=== PATIENT | female | born 1945 | race Caucasian/White ===

== ENCOUNTER 2017-06-07 19:11 | Observation (INO) | payer MEDICARE, MEDICAID ==
[~2017-06-07 19:11] MED LIST: Iopamidol 370 76% 50 ML VIAL FS ONE
[2017-06-07 21:27] LABS: PTT 29.1 SEC (22.9-36.1); Prothrombin Time 13.6 SEC (12.0-14.7)
[2017-06-07 21:28] LABS: #Eosinphils 0.3 thou/uL (0.0-0.7); #Lymphocytes 0.7 thou/uL (1.20-3.40); #Monocytes 0.8 thou/uL (0.11-0.59); #Neutrophils 4.1 thou/uL (1.40-6.50); %Basophils 0.7 % (0.0-1.0); %Eosinophils 5.4 % (0.0-10.0); %Lymphocytes 12.2 % (21.0-51.0); %Neutrophils 68.7 % (42.0-75.0); Hemoglobin 5.7 g/dL (12.0-16.0); Mean Corpuscular Hemoglobin 20.9 pg (27.0-31.0); Mean Corpuscular Volume 71.9 fl (81.0-99.0); Mean Platelet Volume 7.8 fL (7.4-10.4); Platelet Count 455 thou/uL (130-400); RBC Distribution Width 14.3 % (11.5-14.5); Red Blood Cell (RBC) Count 2.74 mill/uL (4.20-5.40); White Blood Cell (WBC) Count 5.9 thou/uL (4.8-10.8)
[2017-06-07 21:30] LABS: ALT (SGPT) 11 U/L (8-55); AST (SGOT) 15 U/L (5-34); Albumin 3.7 g/dL (3.4-4.8); Alkaline Phosphatase 243 U/L (40-150); Anion Gap 15 mmol/L (10-20); BUN (Urea Nitrogen) 20 mg/dL (9.8-20.1); Bilirubin, Total 0.3 mg/dL (0.2-1.2); Calc. Creatinine Clearance 0 mL/min (70-130); Carbon Dioxide 23 mmol/L (23-31); Chloride 105 mmol/L (98-107); Estimated GFR-MDRD 70; Globulin 3.3 g/dL (2.4-3.5); Glucose 97 mg/dL (83-110); Sodium 139 mmol/L (136-145)
[2017-06-07 21:35] LABS: CKMB 1.3 ng/mL (0-6.6); Troponin I 0.016 ng/mL (< 0.028)
[2017-06-07] MEDS ORDERED: Lorazepam 2 MG/ML VIAL ONE (22:09)
--- NOTE | 2017-06-07 23:05 | CT ---
CT OF THE ABDOMEN AND PELVIS WITHOUT CONTRAST 06/07/17 PROVIDED CLINICAL HISTORY: Abdominal pain, history of recent ERCP. FINDINGS: Comparison is made with prior examination dated 03/30/15. The visualized lung bases appear clear. There is a large hiatal hernia redemonstrated. Pneumobilia is noted, presumably on the basis of prior sphincterotomy. There is high density fluid wi th several foci of air noted at the posterior and right lateral margin of the liver, extending along the right lateral aspect of the abdomen adjacent to the ascending colon laterally. This is in a simil ar location to a fluid collection that was present on the 2014 CT examination which had a drain place d in this region at that time. The etiology of this fluid and gas is uncertain. A bile leak cannot be excluded. Blood products are also possible. The solid abdominal organs are suboptimally evaluated without IV contrast but demonstrate and otherwi se unremarkable unenhanced CT appearance. There is no bowel dilatation, inflammatory fat stranding or free intraperitoneal air apparent. Sigmoi d colonic diverticulosis is noted. Vascular calcifications are seen. The osseous structures demonstra te no concerning osteoblastic or osteolytic lesions. Remote appearing compression deformities are not ed involving the lower thoracic spine. IMPRESSION: High density fluid with admixed foci of air are noted about the right liver margin and extending roney g the right pericolic gutter. The etiology and significance of these findings is not completely certa in though one explanation would be on the basis of a bile leak. This is in a similar location to a fl uid collection which previously was drained by a drainage catheter on the 2015 study. POS: JOHN
[2017-06-07 23:53] LABS: Band 2 % (5-11); Eosinophils 3 % (0-10); Lymphocytes 12 % (21-51); Monocytes 12 % (0-10)
[2017-06-07 23:54] LABS: Anisocytosis SLIGHT = 6-15 cells (100X) (0-5/hpf); Hypochromia SLIGHT = 6-15 cells (100X) (0-5/hpf); Microcytosis MODERATE=15-30 cells (100X) (0-5/hpf); Polychromasia SLIGHT = 2-3 cells (100X) (0-2/hpf)
[2017-06-07 23:55] LABS: PLT Morphology Comment Appears Increased
[2017-06-08 00:38] VITALS: BMI 21.4
[2017-06-08 00:56] LABS: Neutrophil 70 % (42-75)
[2017-06-08] MEDS ORDERED: Donepezil HCl 10 MG TAB PO SCH ×2 (01:45→21:00)
[2017-06-08] MEDS ORDERED: Mirtazapine 15 MG TAB PO SCH ×2 (01:45→21:00)
[2017-06-08] MEDS ORDERED: HYDROcodone/Acetaminophen 10/325 mg Tablet PO PRN (02:42)
[2017-06-08] MEDS ORDERED: Acetaminophen 325 MG TAB PO PRN (02:42)
[2017-06-08] MEDS ORDERED: Ondansetron HCl/PF 4 MG/2 ML Vial IVP PRN (02:42)
[2017-06-08] MEDS ORDERED: Ondansetron ODT 4 MG TAB PO PRN (02:42)
[2017-06-08] MEDS ORDERED: HYDROcodone/Acetaminophen 5/325 mg Tablet PO PRN (02:42)
--- NOTE | 2017-06-08 03:14 | HP ---
DATE OF ADMISSION: 06/08/2017 TIME OF SERVICE: 0130 hours. PRIMARY CARE PHYSICIAN: Dr. Gi Vaz. CHIEF COMPLAINT: Dyspnea on exertion and symptomatic anemia. HISTORY OF PRESENT ILLNESS: Ms. Nicholson is a 71-year-old female with history of dementia, migraine hea daches, remotely, recent choledocholithiasis, depression, and GERD. The patient was in normal state of health and having increased shortness of breath that she was getting moving around. She was seen by her primary care physician on 06/06/2017. Labs were ordered that day. The patient was sent home. On 06/07/2017, lab returned with a hemoglobin of 6.0 and she was told to go straight to the ER for ev aluation and possible admission for transfusion. On arrival to our ER, repeat blood counts were obta ined that showed hemoglobins the same at 5.7 and we were subsequently called for admission. She was typed and crossed for 2 units. The patient denies any chest pain, short of breath. No nausea, vomiting, no diarrhea, constipation, no fevers, or chills. She has had no GI bleeding from above or below. No hematuria or dysuria and n o abdominal trauma. Patient was admitted at [facility] about a month ago for abdominal pain, which she was found to have choledocholithiasis. She underwent ERCP. I was told by the ER, they were unable to get the st one; however, the patient said they did to retrieve stone. She has no gallbladder; it is already willie gically absent. On review the patient has a hemoglobin of 8.9 back in 07/2016, by 01/2017 is up to 10.7 and then 05/16 down to 6.0. No other current complaints. PAST MEDICAL HISTORY: 1. Dementia. 2. Migraine headaches remotely. 3. Choledocholithiasis status post ERCP. 4. Depression. 5. GERD. PAST SURGICAL HISTORY: 1. Include laparoscopic cholecystectomy in 2014. 2. Appendectomy in early . 3. ERCP and stone removal 04/2017. HOME MEDICATIONS: 1. Protonix 40 mg p.o. daily. 2. Aricept 10 mg p.o. at bedtime. 3. Mirtazapine 30 mg p.o. at bedtime. 4. Duloxetine 30 mg p.o. daily. ALLERGIES: NKDA. FAMILY HISTORY: Denied. There is no history of clotting disorders. No free of liters or blood clot s. No history of immune dysfunction. SOCIAL HISTORY: Past tobacco use, but quit less than 10 years ago. She smoked for about 50 years. Currently uses negative habits x3. REVIEW OF SYSTEMS: Ten point review of systems was performed, negative for all other systems except stated as per HPI. PHYSICAL EXAMINATION: VITAL SIGNS: Temperature 98.2, pulse 84, blood pressure 108/74, respiratory 23, 99% on room air. GENERAL: She is awake. She is alert. She is oriented to x3. She is a pleasant, elderly white fema le. She seems a little confused at times, but is pleasantly conversant. HEENT: Normocephalic, atraumatic. Pupils are equal, round, and reactive to light bilaterally, mucou s membranes are moist. She has no visible lesion or no thrush. No facial asymmetry. NECK: Supple, no lymphadenopathy, JVD, thyromegaly. She has normal carotid upstroke without bruits. LUNGS: Clear. No wheezes, no rales, no rhonchi. She has good air movement. Symmetrical chest excu rsion. No prolonged expiratory phase. CARDIOVASCULAR: She has normal S1 and S2. There is no S3, S4. There is a faint, 2/6 systolic eject ion murmur, best over the right upper sternal border. ABDOMEN: Soft, nontender, nondistended, no masses, no organomegaly. EXTREMITIES: No cyanosis, no clubbing. She has got trace pedal edema, 1+ dorsalis pedis pulses bila terally, 2+ posterior tibial pulses. SKIN: Warm, moist and well perfused. She has no rashes or lesions. She does look a little pale, bu t no scleral icterus. MUSCULOSKELETAL: Normal to inspection. She has no inflamed joints and no palpable joint effusions. NEUROLOGIC: Cranial nerves II-XII are grossly intact. She has 5/5 strength in all four extremities. She has no focal deficits and normal speech. LABORATORY DATA: Sodium of 139, potassium 4.0, chloride 105, bicarb 23, BUN 20, creatinine 0.51, and glucose of 97. Liver function completely within normal limits. Alkaline phosphatase little elevate d at 243 with bilirubin normal. CBC showed a white count of 5.9, hemoglobin 5.7, hematocrit of 19.7, platelet count of 455,000. Hepatitis C antibody total negative. CK-MB normal at 1.3. Troponin I 0.016. Lactic acid 1.0. INR 1.0. RADIOGRAPHIC STUDIES: A CT of the abdomen and pelvis showed high density fluid in mixed foci of air in the right liver margin along the right paracolic gutter, but could be a bile leak. It is in the s imilar location of a fluid collection, which was previously drained by drainage catheter in 2015 stud y. ASSESSMENT AND PLAN: 1. Symptomatic anemia. Patient was given 2 units of blood. She has been started a second unit now. We will continue to monitor. 2. Hypochromic microcytic anemia. Etiology not clear. She had fairly normal hemoglobin back in [facility]. We will check an LDH and haptoglobin. We will get a peripheral pathologic review of periphe ral smear. A CT scan did show fluid along the right paracolic gutter, but certainly the fluid collec tion would not explain a 4 gram drop in hemoglobin. We will check a blood count in the morning after transfusion and see. Patient has not had any history of melena, hematochezia, or hematemesis. I wi ll continue to watch. 3. Recent choledocholithiasis, status post endoscopic retrograde cholangiopancreatography and stone removal at [place]. Nothing on CAT scan worries other than the chronic fluid collection in the right paracolic gutter. 4. Gastroesophageal reflux disease. Continue Protonix. 5. Dementia/depression on Aricept and mirtazapine. We will continue duloxetine.
[2017-06-08] MEDS: Sodium Chloride 0.9% 1,000 ML IV SCH ×2 (05:29→13:51)
[2017-06-08 05:56] LABS: #Eosinphils 0.2 thou/uL (0.0-0.7); #Lymphocytes 0.9 thou/uL (1.20-3.40); #Monocytes 0.8 thou/uL (0.11-0.59); #Neutrophils 4.6 thou/uL (1.40-6.50); %Basophils 0.7 % (0.0-1.0); %Eosinophils 3.4 % (0.0-10.0); %Lymphocytes 13.6 % (21.0-51.0); %Monocytes 12.2 % (0.0-10.0); %Neutrophils 70.1 % (42.0-75.0); Hemoglobin 8.7 g/dL (12.0-16.0); Mean Corpuscular HGB CONC 31.5 g/dL (32.0-36.0); Mean Corpuscular Hemoglobin 24.6 pg (27.0-31.0); Mean Corpuscular Volume 78.1 fl (81.0-99.0); Mean Platelet Volume 7.6 fL (7.4-10.4); Platelet Count 407 thou/uL (130-400); RBC Distribution Width 18.4 % (11.5-14.5); Red Blood Cell (RBC) Count 3.54 mill/uL (4.20-5.40); White Blood Cell (WBC) Count 6.5 thou/uL (4.8-10.8)
[2017-06-08 05:59] LABS: ALT (SGPT) 11 U/L (8-55); AST (SGOT) 16 U/L (5-34); Albumin 3.5 g/dL (3.4-4.8); Alkaline Phosphatase 238 U/L (40-150); Anion Gap 10 mmol/L (10-20); BUN (Urea Nitrogen) 15 mg/dL (9.8-20.1); Bilirubin, Total 1.2 mg/dL (0.2-1.2); Calc. Creatinine Clearance 62 mL/min (70-130); Carbon Dioxide 28 mmol/L (23-31); Chloride 105 mmol/L (98-107); Estimated GFR-MDRD 80; Globulin 3.2 g/dL (2.4-3.5); Glucose 104 mg/dL (83-110); Potassium 4.2 mmol/L (3.5-5.1); Protein, Total 6.7 g/dL (6.0-8.3); Sodium 139 mmol/L (136-145)
[2017-06-08] MEDS ORDERED: Pantoprazole 40 MG VIAL IVP SCH (09:00)
[2017-06-08 09:04] LABS: Reticulocyte Count 2.7 % (0.5-1.5)
[2017-06-08 09:14] LABS: Iron 90 ug/dL (50-170); Iron Binding Capacity, Total 470 mcg/dL (265-497)
--- NOTE | 2017-06-08 12:27 | PDOC.EVN ---
Event Note - Event Note Event Note: Danielle is seen today explained she need to stay if Fecal occult test was posiitve and will consult GI for further evaaltiion of Anemia, Daughter is at bedside. patiet agreed with plan, pt is very stbale, no active bleeding noted, No abdominal pain, Will order iron studies.
[2017-06-08 13:21] VITALS: TEMP 98.6
[2017-06-08 18:33] VITALS: BP 157/63
--- NOTE | 2017-06-08 21:25 | CON ---
DATE OF CONSULTATION: 06/08/2017 GASTROINTESTINAL INPATIENT CONSULTATION NOTE REQUESTING PHYSICIAN: Grady Romero M.D. REASON FOR CONSULTATION: Anemia. HISTORY OF PRESENT ILLNESS: Crystal Nicholson is a 71-year-old woman with a history of dementia, migraine headaches, cholecystectomy back in 2014 and failed ERCP at that time, with chronic choledocholithiasi s up until evidently successful ERCP in [place] a couple of months ago with Dr. Tesfaye. Since that time, her liver tests have gone down to essentially normal. She has been seen in the past by my GI colleague, Dr. Rafita Lucas. It does not appear she has ever had a full EGD or colonoscopy. She has n o prior gastrointestinal history except for these issues with choledocholithiasis in the recent past. She was admitted to the hospital last night after having been sent from clinic with significant new salbador flynn. It looks like last January, hemoglobin was 10.7, but on blood draw yesterday it was 6.0. U kylah arrival to the hospital, it was 5.7 microcytic with an MCV of 71.9. She received 2 units RBC tra nsfusion and hemoglobin came up nicely to 8.7 today. Notably, the patient denies any overt bleeding from anywhere. She denies epistaxis, gross hematuria, hematemesis, melena, or hematochezia. She den ies change in bowel habits such as diarrhea or constipation. There is no nausea or vomiting. No abd ominal pain. She even really denies have been symptomatic from the anemia, denying presyncope, fatig ue or dyspnea on exertion. REVIEW OF SYSTEMS: Full review of systems including constitutional, head, throat, ears, nose, throat , GI, , cardiovascular, respiratory, musculoskeletal, and neurologic systems is negative except as noted in the HPI. PAST MEDICAL HISTORY: Appendectomy, dementia, migraine headaches, depression, GERD, cholecystectomy 2014, choledocholithiasis, status post failed ERCP in 2014, then a successful ERCP with Dr. Tesfaye in [place] 2 months ago. ALLERGIES: No known drug allergies. OUTPATIENT MEDICATIONS: Protonix 40 mg daily, Aricept, Remeron, and duloxetine. FAMILY HISTORY: Noncontributory. SOCIAL HISTORY: She is a former smoker. PHYSICAL EXAMINATION: VITAL SIGNS: Temperature 98.6, pulse 74, blood pressure 161/70, 94% oxygen saturation on room air. GENERAL: A 71-year-old woman sitting up in bed comfortably in no distress. SKIN: She is pale, no jaundice, no rashes were palpable. EYES: No scleral icterus. Extraocular movements intact. ENT: Mucous membranes moist, no oral lesions. LYMPHATICS: No submandibular, supraclavicular lymphadenopathy. THYROID: Nontender to palpation. HEART: Regular rate and rhythm. LUNGS: Clear to auscultation bilaterally. ABDOMEN: Bowel sounds present, soft, nontender to palpation throughout. No masses or organomegaly a ppreciated. No guarding or rebound tenderness. EXTREMITIES: No peripheral edema. VESSELS: Radial pulses 2+ bilaterally. NEUROLOGICAL: Cranial nerves II-XII intact bilaterally. No focal deficits. LABORATORY STUDIES: Admission hemoglobin 5.7 with MCV 71.9 after 2 units of RBCs hemoglobin is now 8 .7. WBC 6.5, platelets 407. INR 1.0. BUN 15, creatinine 0.72, sodium 139, potassium 4.2. Lactic a megan 1.0. Iron 90, TIBC 470, 19% iron saturation. LDH is 179. FOBT is positive. Hepatitis C antibo dy negative. Alkaline phosphatase is a little elevated to 238, much improved from last January. T ransaminases have all normalized with AST 16, ALT 11, total bilirubin only 1.2, albumin 3.5. IMAGING STUDIES: She had a CT of the abdomen and pelvis on admission, which demonstrates pneumobilia , which is consistent with her recent ERCP. There is chronic fluid collection around the right liver margin which is in the same locations in 2015 and this is asymptomatic. ASSESSMENT AND PLAN: 1. Anemia, microcytic, worsening over the past 3 months. 2. Heme-positive stool, I discussed with Mrs. Nicholson her presentation, it certainly seems consistent with occult gastrointestinal bleeding lesion. She has no other gastrointestinal symptoms. She had r ecent ERCP, but she does need formal EGD and colonoscopy for further investigation. I advised that s he remain in the hospital and undergo bowel preparation tonight and we can get the procedure done roni orrow. However, the patient is quite set on being discharged from the hospital today, and would pref er to get this done as an outpatient. I do not think this is optimal, but it is certainly reasonable . There does not appear to be any overt bleeding and this all does appear fairly chronic. That matilde g the case, she is okay to discharge home from a GI perspective, and we will try to arrange to have h er followup for EGD and colonoscopy with her primary engine turner, Dr. Lucas in the next week or two. I did stress to the patient the importance of compliance with followup in this regard, and she expresses understanding. I also impressed this upon her daughter and son-in-law. Gastrointestinal will sign off at this time, but please call back with any questions or concerns or i f the patient does decide to stay for endoscopy. Thank you for the consultation.
[2017-06-09] MEDS ORDERED: FLU VACC TS2017-18 (>65YR) 0.5 ML SYRINGE IM ONE (09:00)
== END 2017-06-08 18:50 | disposition home or self-care (01) ==
LOC: ERS 19:11 → T4-A 06-08 00:26 → INTOOBSV 06-08 00:26
PROVIDERS: ADMIT Internal Medicine Infectious Disease; ATTEND Internal Medicine Infectious Disease
DX: D50.9 Iron deficiency anemia, unspecified (principal); F03.90 Unspecified dementia, unspecified severity, without behavioral disturbance, psychotic disturbance, mood disturbance, and anxiety; F32.9 Major depressive disorder, single episode, unspecified; F41.9 Anxiety disorder, unspecified; G43.909 Migraine, unspecified, not intractable, without status migrainosus; K21.9 Gastro-esophageal reflux disease without esophagitis; I10 Essential (primary) hypertension; Z87.891 Personal history of nicotine dependence; Z79.899 Other long term (current) drug therapy; Z90.49 Acquired absence of other specified parts of digestive tract; Z98.890 Other specified postprocedural states
CPT/HCPCS: 36430; 74176; 80053 ×2; 82274 ×2; 82553; 83010; 83540; 83550; 83605; 83615; 84484; 85025 ×2; 85046; 85610; 85730; 86850; 86900; 86901; 86920; 93005; 96361; 96374; 96375; 97139; 99291; G0378; P9016; 36415; 85060; C9113; J2060

== ENCOUNTER 2019-03-12 10:56 | Emergency (ER) | payer MEDICARE, OTHER ==
[~2019-03-12 10:56] MED LIST changes: +Atropine Sulfate 1 mg/10 ml Syringe ONE; +Calcium Chloride 1 GM/10 ML Abboject SYRINGE ONE; +EPINEPHrine 1 MG/10 ML Abboject SYRINGE ONE; -Iopamidol 370 76% 50 ML VIAL FS ONE; +Sodium Bicarb 50 MEQ/50 ML VIAL ONE
[2019-03-12] MEDS ORDERED: Sodium Bicarbonate 2.5 MEQ/5 ML VIAL ONE (11:09)
[2019-03-12] MEDS ORDERED: EPINEPHrine 1 MG/ML AMP ONE (11:11)
[2019-03-12] MEDS ORDERED: Sodium Bicarb 50 MEQ/50 ML VIAL ONE (11:11)
[2019-03-12] MEDS ORDERED: Norepinephrine 4 MG/4 ML VIAL ONE (11:12)
[2019-03-12 11:23] LABS: Hemoglobin 11.1 g/dL (12.0-16.0); Mean Corpuscular HGB CONC 33.4 g/dL (32.0-36.0); Mean Corpuscular Hemoglobin 29.3 pg (27.0-31.0); Mean Corpuscular Volume 87.7 fL (78.0-98.0); Platelet Count 212 thou/uL (130-400)
[2019-03-12 11:49] LABS: Anion Gap 20 mmol/L (10-20); BUN (Urea Nitrogen) 21 mg/dL (9.8-20.1); Calc. Creatinine Clearance 0 mL/min (70-130); Carbon Dioxide 28 mmol/L (23-31); Chloride 93 mmol/L (98-107); Estimated GFR-MDRD 32; Potassium 3.2 mmol/L (3.5-5.1); Sodium 138 mmol/L (136-145)
[2019-03-12 11:50] LABS: ALT (SGPT) 30 U/L (8-55); AST (SGOT) 39 U/L (5-34); Albumin 2.7 g/dL (3.4-4.8); Alkaline Phosphatase 326 U/L (40-110); Bilirubin, Total 0.8 mg/dL (0.2-1.2); Calcium 8.5 mg/dL (7.8-10.44); Glucose 116 mg/dL (83-110); Protein, Total 6.7 g/dL (6.0-8.3)
[2019-03-12 12:01] LABS: Band 23 % (5-11); Lymphocytes 15 % (21-51); MDiff Complete? YES; Metamyelocyte 4 % (0-0); Monocytes 3 % (0-10); Myelocyte 2 % (0-0); Neutrophil 53 % (42-75); Nucleated RBC 4 % (0); Platelet Morphology Comment Appears Adequate; Polychromasia SLIGHT = 2-3 cells (100X) (0-2/hpf); Red Blood Cell (RBC) Count 3.79 mill/uL (4.20-5.40); White Blood Cell (WBC) Count 23.2 thou/uL (4.8-10.8)
[2019-03-12 12:25] LABS: CKMB 2.7 ng/mL (0-6.6)
== END 2019-03-12 11:21 | disposition expired ==
LOC: ERS 10:56
DX: I46.9 Cardiac arrest, cause unspecified (principal); I10 Essential (primary) hypertension; G43.909 Migraine, unspecified, not intractable, without status migrainosus; F03.90 Unspecified dementia, unspecified severity, without behavioral disturbance, psychotic disturbance, mood disturbance, and anxiety; Z79.891 Long term (current) use of opiate analgesic
CPT/HCPCS: 36556; 51702; 80053; 82553; 83605; 84484; 85025; 92950; 94002; 96374; 96375; 96376; J0171; J0461